=== PATIENT | female | born 1930 | race Caucasian/White ===

== ENCOUNTER 2017-02-16 04:15 | Inpatient (IN) | payer OTHER, MEDICARE ==
[~2017-02-16] VITALS: Ht 160 cm; Wt 52.7 kg
[~2017-02-16 04:15] MED LIST: ASPIRIN EC81 M1 PO; LOSARTAN POTAS100 M1 PO; METOPROLOL TART25 M1 PO; NISOLDIPINE PO; PRAVASTATIN SOD40 M2 PO
[2017-02-16] MEDS ORDERED: GLUCOSAMINE-CH1 EACH PO (13:04)
[2017-02-16] MEDS ORDERED: DAILY MULTIPLE1 EACH PO (13:05)
--- NOTE | 2017-02-16 14:50 | Admission Core Measures ---
Admission Meds I reviewed the following Meds: Current Medications Sig/Roly Start time Last Medication Dose Stop Time Status Admin Acetaminophen 975 MG ONCE 02/16 NR (Tylenol) 02/16 2359 Cefazolin Sodium 2,000 MG ONCE 02/16 NR (Kefzol-Ancef Inj) 02/16 2359 Losartan Potassium 100 MG DAILY 02/17 1000 UNVr (Cozaar) Metoprolol Tartrate 25 MG BID 02/16 2200 UNVr (Lopressor) Oxycodone HCl 10 MG ONCE 02/16 0000 NR (Roxicodone) 02/16 2359 Pravastatin Sodium 40 MG DAILY 02/17 1000 UNVr (Pravachol) Acute Coronary Syndrome Inclusion Criteria ACS Diagnosis No Inpatient Core Measures LDL Reminder: If No, please order W/I first 24hr of stay Congestive Heart Failure Inclusion Criteria CHF Diagnosis No Cerebrovascular accident Inclusion Criteria CVA/TIA Diagnosis No Inpatient Core Measures Bedside Swallow Eval Reminder: If BSE failed, place ST order Antithrombotic Reminder: Order Antithrombotic Medication by end of day 2 Antithrombotic Reminder: Document Reason Antithrombotic Not ordered by end of day 2 AFIB/Flutter Reminder: If Present, add to problem list AFIB/Flutter Reminder: Order Anticoag Medication for pts with AFIB/Flutter Atherosclerosis Reminder: If Present, add to problem list LDL Reminder: If No, please order W/I first 24hr of stay PT Order Reminder: If No, please order Venous thromboembolism Inpatient Core Measures VTE Risk Factors: Age > 40, Surgery No [facility] VTE prophylaxis d/t No contraindications No VTE Pharm Prophylaxis d/t No contraindications Inclusion Criteria - Per Current guidelines, there needs to be overlap - treatment for the first 5 days of Warfarin therapy. - Parenteral Anticoagulation (IV or SC) needs to be - given along with Warfarin therapy. VTE Diagnosis No VTE Type NONE VTE Confirmed by (Test) NONE Problem List As ranked by this Provider includes Assessment & Plan 1. Status post total hip replacement, right HOME MEDS Home Med List Aspirin (Ecotrin*) 81 MG TABLET. 1 TAB PO DAILY PROPHO (Reported) Glucosam HCl/Chondro Rothman A/C/Mn (Glucosamine-Chondroitin Cap) 1 EACH CAPSULE 1 TAB PO DAILY SUPP (Reported) Losartan Potassium 100 MG TABLET 1 TAB PO DAILY HYPONATREMIA (Reported) Metoprolol Tartrate 25 MG TABLET 1 TAB PO BID HTN (Reported) Multivitamin (Daily Multiple Vitamin) 1 EACH TABLET 1 TAB PO DAILY SUPP ( Reported) Nisoldipine 8.5 MG TAB.ER.24H 1 TAB PO DAILY BP (Reported) Pravastatin Sodium 40 MG TABLET 1 TAB PO DAILY CHOLESTEROL (Reported)
--- NOTE | 2017-02-16 14:52 | Discharge Summary ---
Visit Information Visit Dates Admission Date: 02/16/17 Discharge Date: 02/18/17 Hospital Course Course Attending Physician: BC YUEN MD Primary Care Physician: GENESIS MEREDITH,[facility] Course: Patient admitted to floor following procedure below. Patient ambulated with PT upon arrival to the floor. Patient continued to progress well. Upon discharge patient is afebrile, tolerating diet, pain controlled, ambulating well with rolling walker and PT. Complications: None Allergies: Coded Allergies: No Known Allergies (02/13/17) Significant Procedures: 02/16/17 right total hip arthroplasty Disposition Summary Disposition Principal Diagnosis: Right hip pain Additional Diagnosis: None Discharge Disposition: home health services Discharge Instructions General Discharge Information Code Status: Full Code Patient's Diet: Resume normal diet Patient's Activity: Weightbearing as tolerated Daily physical therapy Follow-Up Instructions/Appts: Call office to schedule appointment Medications at Discharge Discharge Medications: Stop taking the following medications: Aspirin (Ecotrin*) 81 MG TABLET.DR ORAL DAILY Continue taking these medications: Nisoldipine (Nisoldipine) 8.5 MG TAB.ER.24H 1 Tablet ORAL DAILY Comments: NOT GIVEN Pravastatin Sodium (Pravastatin Sodium) 40 MG TABLET 1 Tablet ORAL DAILY Comments: Last Taken: 02/17/17 Time: 2200PM Metoprolol Tartrate (Metoprolol Tartrate) 25 MG TABLET 1 Tablet ORAL TWICE DAILY Comments: Last Taken: 02/18/17 Time: 0800AM Losartan Potassium (Losartan Potassium) 100 MG TABLET 1 Tablet ORAL DAILY Comments: Last Taken: 02/18/17 Time: 0800AM Glucosam HCl/Chondro Rothman A/C/Mn (Glucosamine-Chondroitin Cap) 1 EACH CAPSULE 1 Tablet ORAL DAILY Comments: NOT GIVEN Multivitamin (Daily Multiple Vitamin) 1 EACH TABLET 1 Tablet ORAL DAILY Comments: NOT GIVEN Start taking the following new medications: Aspirin (Aspirin*) 325 MG TABLET 1 Tablet ORAL TWICE DAILY Qty = 60 No Refills Comments: Last Taken: 02/18/17 Time: 0800AM Hydromorphone HCl (Dilaudid) 2 MG TABLET 1-2 Tablet ORAL Q4-6P as needed for PAIN Qty = 36 No Refills Comments: Last Taken:02/17/17 Time: 1430PM Docusate Sodium (Colace) 100 MG CAPSULE 1 Capsule ORAL TWICE DAILY as needed for CONSTIPATION Qty = 30 No Refills Comments: Last Taken: 02/18/17 Time: 0800AM Polyethylene Glycol 3350 (Miralax) 17 GRAM POWD.PACK 1 Packet ORAL DAILY as needed for CONSTIPATION Qty = 14 No Refills Instructions: dissolve in water Comments: NOT GIVEN Copies To: ZOE HURTADO MD
[2017-02-16] MEDS ORDERED: ASPIRIN325 M2 PO (14:54)
[2017-02-16] MEDS ORDERED: MIRALAX17 G1 PO (14:54)
[2017-02-16] MEDS ORDERED: COLACE100 M1 PO (14:54)
[2017-02-16] MEDS ORDERED: DILAUDID2 M1 PO (14:54)
--- NOTE | 2017-02-16 14:55 | Patient Discharge Instructions ---
Discharge Instructions General Discharge Information You were seen/treated for: Right hip pain You had these procedures: 02/16/17 right total hip arthroplasty Watch for these problems: Redness, swelling, fever, signs of infection. Uncontrolled pain, Excessive bleeding. Decreased range of motion or unable to bear weight. Chest pain, shortness of breath. Do not soak the wound: Yes No bath, but you may shower: Yes Other wound care: Daily dressing changes were as needed Diet Continue normal diet: Yes Activity Activity Self Limited: Yes Activity Limited to: Weight bear as tolerated Additional ACTIVITY Info: Daily PT Acute Coronary Syndrome Inclusion Criteria At DC or during hospital stay patient has or had the following: ACS DIAGNOSIS No Discharge Core Measures Meds if any: Prescribed or Continued at Discharge Meds if any: NOT Prescribed or Continued at Discharge Congestive Heart Failure Inclusion Criteria At DC or during hospital stay patient has or had the following: CHF DIAGNOSIS No Discharge Core Measures Meds if any: Prescribed or Continued at Discharge Meds if any: NOT Prescribed or Continued at Discharge Cerebrovascular accident Inclusion Criteria At DC or during hospital stay patient has or had the following: CVA/TIA Diagnosis No Discharge Core Measures Meds if any: Prescribed or Continued at Discharge Meds if any: NOT Prescribed or Continued at Discharge Venous thromboembolism Inclusion Criteria VTE Diagnosis No VTE Type NONE VTE Confirmed by (Test) NONE Discharge Core Measures - Per Current guidelines, there needs to be overlap - treatment for the first 5 days of Warfarin therapy. - If discharged on Warfarin prior to 5 days of - overlap therapy, the patient will need to be - assessed for post discharge needs including - *Post discharge parental anticoagulation - *Warfarin and/or parental anticoagulation education - *Follow up date to check INR post discharge At least 5 days overlap therapy as Inpatient No Meds if any: Prescribed or Continued at Discharge Note: Overlap Therapy is Warfarin and Anticoagulant Meds if any: NOT Prescribed or Continued at Discharge
--- NOTE | 2017-02-16 17:16 | Operative Report ---
Operative/Inv Procedure Report Surgery Date: 02/16/17 Name of Procedure: Right total hip replacement Pre-Operative Diagnosis: Primary right hip DJD Post-Operative Diagnosis: Same Estimated Blood Loss: 250 Surgeon/Out Of School Hours Care Worker: WILFRID MEREDITH,BC [place] Anesthesia: block Operative/Procedure Note Note: Description of Procedure: The patient was taken to the operating room and positively identified. After induction of spinal anesthesia and administration of appropriate pre-operative antibiotics, the patient was positioned supine on the operating room table and all bony prominences were well padded. After performing a surgical timeout, the right lower extremity was prepped and draped in the usual sterile fashion. A direct anterior approach was made to the right hip. The incision was carried sharply through superficial soft tissues to the level of the fascia. Meticulous hemostasis was maintained with Bovie electocautery. The fascia over the tensor fascia shavon muscle was opened sharply and the interval between the TFL and the sartorius was entered bluntly taking care to stay lateral to the lateral femoral cutaneous nerve. Retractors were placed around the femoral neck and the pericapsular fat was identified. The ascending branches of the lateral femoral circumflex vessels were identified and carefully coagulated. The pericapsular fat and anterior capsule were then resected. A napkin ring osteotomy was performed and the femoral head was removed without difficulty. Attention was then turned to the acetabulum. After appropriate placement of retractors, the acetabulum was exposed. Soft tissue was cleaned from the acetabular margin and notch. Overhanging osteophytes were removed and the teardrop was exposed. The acetabulum was then sequentially reamed to accept a 58 mm Feng Trident Tritanium hemispherical shell. This was impacted into place in the appropriate position and several screws were used for supplemental fixation. It was then fitted with a 36 mm Trident X3 zero degree polyethylene insert. Attention was then turned to the femur. After performing the appropriate ligament releases, the proximal femur was exposed. It was then sequentially broached to accept a size 5 Feng accolade 2 stem. This was trialed for leg length and stability. The trial component was removed and the final component was impacted into place. The trunnion was carefully cleaned and fit with a 36 mm, +0 Biolox delta ceramic femoral head. The hip was reduced and put through a full range of motion and found to be stable. The articular space was then irrigated with sterile saline. The periarticular soft tissues were infilitrated with Marcaine. The fascial layer was closed with interrupted #1 vicryl suture and the skin was re-approximated with interrupted 2 -0 vicryl. The skin was closed with a running 3-0 V-Lock suture. Steri-strips and a sterile dressing were applied. The patient was awakened and taken to the recovery room in satisfactory condition.
--- NOTE | 2017-02-16 18:12 | RADIOLOGY REPORT ---
EXAMINATION: XR HIP, RIGHT CLINICAL INFORMATION: Follow-up status post right hip replacement. COMPARISON: None TECHNIQUE: AP and crosstable lateral of the right hip. FINDINGS: A right hip prosthesis is intact. There is no evidence for hardware failure or migration. There is expected subcutaneous gas following hardware placement. There is soft tissue swelling. IMPRESSION: Expected appearance of right hip following right hip prosthesis placement.
[2017-02-16 19:27] VITALS: BP 132/60
--- NOTE | 2017-02-16 20:41 | NUR ---
PT UP TO FLOOR AT 1900. PT A/O X3, PT ON RA. VSS. PT DENIES PAIN. DRSG TO R HIP C/D/I,. NO DRAINAGE NOTED. SKIN OTHERWISE INTACT. ALSPS ON TO BLE. DURACOLD TO R HIP. IVF INFUSING VIA #20 LK PER EMAR. + CMS. CALL [facility] USE INSTRUCTED . WILL MONITOR
[2017-02-16 21:00] VITALS: BP 151/71
[2017-02-17 00:59] VITALS: BP 140/64
[2017-02-17 03:27] VITALS: BP 150/62
[2017-02-17 07:10] VITALS: BP 146/52
[2017-02-17 08:15] LABS: ABSOLUTE BASOPHIL COUNT 0 /CUMM (0.0-0.2); ABSOLUTE EOSINOPHIL COUNT 0 /CUMM (0.0-0.7); ABSOLUTE LYMPH COUNT 1.2 /CUMM (1.2-3.4); ABSOLUTE MONOCYTE COUNT 1.4 /CUMM (0.10-0.60); BASOPHIL % 0.1 % (0.0-2.0); EOSINOPHIL % 0 % (0-5); HEMATOCRIT 28.3 % (37-47); MEAN CORPUSCULAR HGB 31.2 PG (27.0-31.0); MEAN CORPUSCULAR HGB CONC 33.6 G/DL (33.0-37.0); MEAN CORPUSCULAR VOLUME 92.7 FL (81.0-99.0); MEAN PLATELET VOLUME 9.4 FL (7.4-10.4); PLATELET COUNT 210 /CUMM (130-400); RED BLOOD CELL CT 3.05 /CUMM (4.20-5.40); WHITE BLOOD CELL COUNT 11.6 /CUMM (4.8-10.8)
--- NOTE | 2017-02-17 08:18 | PN- Orthopedic ---
Subjective Subjective: NAEO. Patient without new c/o. Pain controlled overnight without numbness/ tingling in RLE. Tolerating PO without n/v. +flatus, no BM. Voided. Has not worked with PT yet. Denies CP/SOB. Objective Vital Signs and I&Os Vital Signs Date Time Temp Pulse Resp B/P Pulse O2 O2 Flow FiO2 Ox Delivery Rate 02/17 0710 97.6 54 18 146/52 93 Room Air 02/17 0327 97.6 52 18 150/62 96 Room Air 02/17 0112 50 02/17 0059 97.5 49 18 140/64 95 Room Air 02/16 2134 71 136/60 02/16 2100 98.6 56 17 151/71 96 Room Air 02/16 1927 96.8 71 16 132/60 97 Room Air Intake & Output 02/17 1600 02/17 0800 02/17 0000 02/16 1600 02/16 0800 02/16 0000 Intake Total 720 975 Output Total 100 850 Balance 620 125 Intake, IV 600 225 Intake, Oral 120 750 Number 0 Bowel Movements Output, Urine 100 850 Patient 116 lb Weight Physical Exam: General: NAD, comfortable, A&Ox3 Chest: CTAB. RRR. Abdomen: soft, nontender, nondistended. Ext: Right hip dressing clean dry and intact. Right thigh compartments soft. No calve swelling/TTP, neurovascularly intact bilateral lower extremities Current Medications: Current Medications Sig/Roly Start time Last Medication Dose Route Stop Time Status Admin Acetaminophen 650 MG Q4P PRN 02/16 1915 AC PO Acetaminophen 975 MG ONCE 02/16 0000 DC PO 02/16 235 Amlodipine Besylate 2.5 MG DAILY 02/17 1000 AC PO Aspirin 325 MG BID 02/16 2200 AC 02/16 PO 2134 Cefazolin Sodium 2 GM Q8H 02/17 0000 AC 02/17 N/A 1 UNIT IV 02/17 0829 0023 Cefazolin Sodium 2 GM IQ8 02/16 1600 DC N/A 1 UNIT IV 02/17 0029 Cefazolin Sodium 2,000 MG ONCE 02/16 0000 DC IV 02/16 235 Dextrose/Sodium 1,000 ML .[id number] 02/16 1915 DC 02/17 Chloride IV 0512 Docusate Sodium 100 MG DAILY 02/17 1000 AC PO Fentanyl Citrate 100 MCG .STK-MED ONE 02/16 1115 DC IM 02/16 1116 Hydromorphone HCl 2 MG Q4P PRN 02/16 1915 AC PO Hydromorphone HCl 4 MG Q4P PRN 02/16 191 AC PO Losartan Potassium 100 MG DAILY 02/17 1000 AC PO Meperidine HCl 50 MG .STK-MED ONE 02/16 1712 DC IM 02/16 1713 Metoprolol Tartrate 25 MG BID 02/16 2200 AC 02/16 PO 2134 Midazolam HCl 2 MG .STK-MED ONE 02/16 1115 DC IM 02/16 1116 Morphine Sulfate 2 MG Q3P PRN 02/16 1915 AC IV Ondansetron HCl 4 MG Q6P PRN 02/16 1915 AC IV Oxycodone HCl 10 MG .STK-MED ONE 02/16 1355 DC PO 02/16 1356 Oxycodone HCl 10 MG ONCE 02/16 0000 DC PO 02/16 2359 Polyethylene Glycol 17 GM DAILY 02/17 1000 AC PO Pravastatin Sodium 40 MG 1700 02/16 1700 AC 02/16 PO 2134 Tranexamic Acid 2,000 MG .STK-MED ONE 02/16 1115 DC IV 02/16 1116 Results Last 48 Hours of Labs: Laboratory Tests 02/17 0620 Chemistry Sodium Pending Potassium Pending Chloride Pending Carbon Dioxide Pending Anion Gap Pending BUN Pending Creatinine Pending BUN/Creatinine Ratio Pending Hematology CBC w Diff Pending WBC Pending RBC Pending Hgb Pending Hct Pending MCV Pending MCH Pending RDW Pending Plt Count Pending MPV Pending PUBS MCHC Pending Assessment/Plan Assessment/Plan 86yo female postop day #1 status post right total hip arthroplasty. AVSS, patient stable. - Pain control - Bowel regimen - Aspirin 325 mg by mouth twice a day - DC IV fluids - Antibiotics complete - I/O's - Continue diet - Out of bed and ambulate with PT, weightbearing as tolerated - Alps and teds - DC planning - Will discuss with attending Core Measures/Miscellaneous Venous Thromboembolism VTE Risk Factors: Age > 40, Surgery VTE Contraindications: No Contraindications VTE Diagnosis: No VTE Type: NONE VTE Confirmed by (Test): NONE Beta Pravin Is Beta Pravin a Home Med? Yes If Yes, Was This Ordered Today? Yes Antibiotics Is Patient on Antibiotics? No
[2017-02-17 14:31] VITALS: BP 148/62
[2017-02-17 22:09] VITALS: BP 154/66
[2017-02-18 00:12] VITALS: BP 160/68
[2017-02-18 01:45] VITALS: BP 152/60
--- NOTE | 2017-02-18 06:49 | PN- Orthopedic ---
Subjective Subjective: POD#2 S/P RIGHT MISSY COMFORTABLE NO MAJOR COMPLAINTS DENIES CP, SOB, NO N+V WITH DIET Objective Vital Signs and I&Os Vital Signs Date Time Temp Pulse Resp B/P Pulse O2 O2 Flow FiO2 Ox Delivery Rate 02/18 0145 152/60 02/18 0012 97.8 58 18 160/68 94 02/17 2209 98.4 58 19 154/66 96 02/17 2054 64 150/68 02/17 1431 97.6 59 20 148/62 98 02/17 0844 62 142/68 02/17 0844 76 142/68 02/17 0710 97.6 54 18 146/52 93 Room Air Intake & Output 02/18 0800 02/18 0000 02/17 1600 02/17 0800 02/17 0000 02/16 1600 Intake Total 900 1050 720 975 Output Total 400 850 100 850 Balance 500 200 620 125 Intake, IV 150 600 225 Intake, Oral 900 900 120 750 Number 0 0 0 Bowel Movements Output, Urine 400 850 100 850 Patient 116 lb Weight Physical Exam: CV: RRR LUNGS: CLEAR ABD: SOFT, +BS EXT: DRSG CHANGED, WOUND C/D/I DISTAL CMS INTACT NO CALF TENDERNESS BILAT Assessment/Plan Assessment/Plan ORTHO STABLE PLAN CONT OOB WITH PT/STAIRS HOME D/C PLAN LATER TODAY CONT ALL OTHERS Core Measures/Miscellaneous Venous Thromboembolism VTE Risk Factors: Age > 40, Surgery VTE Contraindications: No Contraindications VTE Diagnosis: No VTE Type: NONE VTE Confirmed by (Test): NONE Beta Pravin Is Beta Pravin a Home Med? Yes If Yes, Was This Ordered Today? Yes Antibiotics Is Patient on Antibiotics? No
[2017-02-18 06:50] VITALS: BP 170/80
[2017-02-18 14:29] VITALS: BP 144/80
== END 2017-02-18 16:20 | disposition home health service (06) | DRG 470 ==
LOC: ENRESERVDT → ENRESERVTM → SDA 04:15 → ENPENDDIS 04:15 → 2NB 04:15 → SDA 07:00 → 2NB 18:51
PROVIDERS: Physician Assistant Surgical; ADMIT Orthopaedic Surgery
PROC: 0SR903A Replacement of Right Hip Joint with Ceramic Synthetic Substitute, Uncemented, Open Approach (ICD-10-PCS; principal; 2017-02-16)
DX: M16.11 Unilateral primary osteoarthritis, right hip (principal); I73.9 Peripheral vascular disease, unspecified; I10 Essential (primary) hypertension; E78.5 Hyperlipidemia, unspecified; K21.9 Gastro-esophageal reflux disease without esophagitis; Z87.891 Personal history of nicotine dependence
CPT/HCPCS: 2NBSP; 36415; 73502-RT; 82436; 88304; 97110-GO; 97116-GO; 97161-GP; 97530-GO; J0690; J0735; J1170; J2405; J3490; J7042

== ENCOUNTER 2018-03-18 20:33 | Inpatient (IN) | payer OTHER, MEDICARE ==
[~2018-03-18] VITALS: Ht 152.4 cm; Wt 53.5 kg
[~2018-03-18 20:33] MED LIST changes: +ASPIRIN325 M2 PO; +COLACE100 M1 PO; +DAILY MULTIPLE1 EACH PO; +DILAUDID2 M1 PO; +GLUCOSAMINE-CH1 EACH PO; +MIRALAX17 G1 PO
--- NOTE | 2018-03-18 21:08 | ED MVC/FALL/TRAUMA COMPLAINT ---
History of Present Illness General Chief Complaint: Fall Stated Complaint: BIBA FALL L HIP PAIN Source: patient, family, old records, EMS Exam Limitations: no limitations Vital Signs & Intake/Output Vital Signs & Intake/Output Vital Signs Date Time Temp Pulse Resp B/P B/P Pulse O2 O2 Flow FiO2 Mean Ox Delivery Rate 03/19 0112 98.4 67 16 159/69 96 Room Air 03/18 2302 98.5 64 18 112/70 97 Room Air Room Air 03/18 2044 98.4 68 18 135/71 98 ED Intake and Output 03/19 0000 03/18 1200 Intake Total 100 Output Total Balance 100 Intake, IV 100 Allergies Coded Allergies: No Known Allergies (02/13/17) Reconcile Medications Amlodipine Besylate 5 MG TABLET 1 TAB PO DAILY BP (Reported) Aspirin (Ecotrin*) 81 MG TABLET.DR 1 TAB PO DAILY HEART/BLOOD (Reported) Calcium (Elemental-Fr Calcarb) (Calcium) 600 MG CALCIUM (1,500 MG) TABLET 1 TAB PO DAILY SUPPLEMENT (Reported) Glucosam HCl/Chondro Rothman A/C/Mn (Glucosamine-Chondroitin Cap) 1 EACH CAPSULE 1 TAB PO DAILY SUPP (Reported) Losartan Potassium 100 MG TABLET 1 TAB PO DAILY BP (Reported) Multivitamin (Daily Multiple Vitamin) 1 EACH TABLET 1 TAB PO DAILY SUPP ( Reported) Pravastatin Sodium 40 MG TABLET 1 TAB PO DAILY CHOLESTEROL (Reported) Triage Note: BIBA FROM HOME S/P MECHANICAL FALL ON FLOOR AT HOME. PATIENT ARRIVES TO ED WITH EMS PRESENTING WITH LEFT LEG ROTATION AND SHORTENING, +CMS PRESENT. PATIENT WAS GIVEN 50MCG FENTANYL BY EMS PRIOR TO ARRIVAL. PREHOSPITAL IV ESTABLISHED #20 LEFT HAND. PATIENT IS ALERT, ORIENTED, SPEECH CLEAR, ON ROOM AIR. PATIENT REPORTS 8/10 LEFT THIGH/HIP PAIN. PROVIDER AT BEDSIDE FOR EVAL Triage Nurses Notes Reviewed? yes Onset: Abrupt Duration: day(s): (1), constant, continues in ED, getting worse Timing: single episode today Severity: mild, moderate Severity Numbers: 9 Injuries/Fall Location: pelvis, lower extremity Method of Injury: fall Loss of Consciousness: no loss of consciousness No Modifying Factors: none LMP (ages 10-50): post menopausal : No Patient currently breastfeeds: No HPI: 87-year-old female past medical history of hypertension, hyperlipidemia, osteoarthritis presents for evaluation after a fall. Patient states that she slipped on her kitchen floor after mopping it she landed on her left hip. There is no head strike or loss of consciousness. She is complaining of pain in the left hip and also the right hip. The right hip was replaced about one year ago. The fall was mechanical there was no chest pain shortness of breath and lightheadedness dizziness before the fall. No blood thinners. She was unable to get up due to pain. No numbness or tingling ankle pain or knee pain. (John Barbosa) Past History Medical History Any Pertinent Medical History? 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 No (John Barbosa) Review of Systems Review of Systems Constitutional: Reports: no symptoms. Eyes: Reports: no symptoms. Ears, Nose, Throat, Mouth: Reports: no symptoms. Respiratory: Reports: no symptoms. Cardiovascular: Reports: no symptoms. Gastrointestinal/Abdominal: Reports: no symptoms. Genitourinary: Reports: no symptoms. Musculoskeletal: Reports: see HPI, joint pain, joint swelling, muscle pain, muscle stiffness. Skin: Reports: no symptoms. Neurological/Psychological: Reports: no symptoms. All Other Systems: Reviewed and Negative (John Barbosa) Physical Exam Physical Exam General Appearance: well developed/nourished, no apparent distress, alert, awake Head: atraumatic, normal appearance, no scalpc abrasions or hematomas no camacho signs or raccoon eyes Eyes: Bilateral: normal appearance, PERRL, EOMI, normal inspection. Ears, Nose, Throat, Mouth: hearing grossly normal, moist mucous membrane Neck: normal inspection, supple, full range of motion, no midline tenderness Respiratory: normal breath sounds, chest non-tender, no respiratory distress, lungs clear Cardiovascular: regular rate/rhythm, normal peripheral pulses Peripheral Pulses: 2+ radial (R), 2+ radial (L), 2+ tibialis posterior (R), 2+ tibialis posterior ( L), 2+ dorsalis pedis (R), 2+ dorsalis pedis (L) Gastrointestinal: soft, non-tender Back: normal inspection, normal range of motion, no vertebral tenderness, no bruising or abrasions Extremities: the left foot is externally rotated and shortened she has severe pain to the lateral aspect of the left hip. Range of motion of left hip is reduced due to pain. There is also tenderness to the right hip to palpation. Range of motion of the right hip is reduced due to pain. Neurovascular supply is intact to the bilateral lower extremities. No other joint swelling or pain. No signs of trauma to the chest neck back or abdomen Neurologic/Psych: no motor/sensory deficits, awake, alert, oriented x 3 Skin: intact, normal color, warm/dry Core Measures ACS in differential dx? No CVA/TIA Diagnosis No Sepsis Present: No Sepsis Focused Exam Completed? No (Eliazar BURNS,John) Progress Differential Diagnosis: C/T/L spine injury, ext injury, ICH, pelvis injury, pnemothorax, spinal cord injury Plan of Care: Orders Procedure Date/time Status Nothing by Mouth 03/19 B Active Weight 03/19 215 Active Vital Signs 03/19 215 Active Teach/Educate 03/19 215 Active Pain Treatment and Response 03/19 215 Active Nutritional Intake, Monitor 03/19 215 Active Isolation 03/19 215 Active Intake & Output 03/19 215 Active Patient Care Conference 03/195 Active Activity/Ambulation 03/195 Active Admit to inpatient 03/19 0126 Active INCENTIVE SPIROMETRY TRX (GEN) 03/18 234 Active Pathway - chart 03/18 234 Active Patient Data 03/18 234 Active Vital Signs 03/18 234 Active Procedure Prep 03/18 2344 Active Activity/Ambulation 03/18 2344 Active Code Status 03/18 2344 Active [place], Insertion/Removal/Asses 03/18 2215 Active CULTURE,URINE 03/18 2215 Active Intake & Output 03/18 2108 Active URINALYSIS 03/18 2045 Complete TROPONIN LEVEL 03/18 2045 Complete PARTIAL THROMBOPLASTIN TIME 03/18 2045 Complete PROTHROMBIN TIME 03/18 2045 Complete COMPREHENSIVE METABOLIC PANEL 03/18 2045 Complete CBC WITHOUT DIFFERENTIAL 03/18 2045 Complete EKG 03/18 2045 Active TYPE & SCREEN (NOT X-MATCH) 03/18 2045 Complete Current Medications Sig/Roly Start time Last Medication Dose Stop Time Status Admin Pravastatin Sodium 40 MG 1700 03/19 1700 AC (Pravachol) Amlodipine Besylate 5 MG DAILY 03/19 0900 AC (Norvasc) Losartan Potassium 100 MG DAILY 03/19 0900 AC (Cozaar) Morphine Sulfate 2 MG Q4P PRN 03/19 0245 AC 03/19 (MORPHINE SULFATE) 0252 Dextrose/Sodium 1,000 ML 100 MLS/HR 03/18 2345 AC 03/19 Chloride 0257 (D5W-1/2 Normal Saline 1000ML) Laboratory Tests 03/18/182247: Urine Color YEL, Urine Clarity CLEAR, Urine pH 6.0, Ur Specific [place] 1.025, Urine Protein 100 H, Urine Ketones NEG, Urine Nitrite NEG, Urine Bilirubin NEG, Urine Urobilinogen 0.2, Ur Leukocyte Esterase NEG, Ur Microscopic SEDIMENT EXAMINED, Urine RBC RARE, Urine WBC RARE, Ur Epithelial Cells FEW, Urine Bacteria MOD H, Hyaline Casts RARE H, Urine Mucus RARE, Urine Hemoglobin TRACE -INTACT, Urine Glucose NEG 03/18/182104: Anion Gap 16, Estimated GFR 53 L, BUN/Creatinine Ratio 32.0 H, Glucose 124 H, Calcium 9.7, Total Bilirubin 0.5, AST 40 H, ALT 27, Alkaline Phosphatase 119, Troponin I < 0.01, Total Protein 7.5, Albumin 4.5, Globulin 3.0, Albumin/ Globulin Ratio 1.5, PT 10.7, INR 0.98, APTT 27, CBC w Diff NO MAN DIFF REQ, RBC 3.90 L, MCV 93.6, MCH 31.5 H, MCHC 33.6, RDW 13.2, MPV 9.6, Gran % 83.5 H, Lymphocytes % 9.2 L, Monocytes % 7.0, Eosinophils % 0.3, Basophils % 0, Absolute Granulocytes 10.3 H, Absolute Lymphocytes 1.1 L, Absolute Monocytes 0.9 H, Absolute Eosinophils 0, Absolute Basophils 0 Microbiology 03/18 2248 URINE ROUT: Urine Culture - RECD Patient seen and evaluated. She is here after a mechanical fall. There is no head strike or loss of consciousness. She has pain and swelling to the left hip the left lower extremity is shortened and externally rotated suspect a fracture. X-rays ordered of the bilateral hips and chest. We'll also check basic preop labs EKG chest x-ray. There is no signs of trauma to the head she is not on blood thinners. IV Tylenol and morphine ordered for pain. Patient has a left-sided intertrochanteric hip fracture. Neurovascular supply is intact to the left hip. There is also a possible chronic fracture/ postsurgical change to the right hip. The hardware to the right hip appears intact. Basic blood work does not show any acute findings EKG is stable. Spoke with Dr Garcia who is on-call for Dr Newman who repaired the patient's right hip. The patient will be admitted to service. Diagnostic Imaging: Viewed by Me: Radiology Read. Discussed w/RAD: Radiology Read. Radiology Impression: PATIENT: TASH WOOTEN V PRESENT AGE: 87 PATIENT ACCOUNT NO: [id number] : 31 LOCATION: [facility] ORDERING PHYSICIAN: John BURNS SERVICE DATE: 03/18/18 EXAM TYPE: RAD - XRY-HIP 2-3 VIEWS, RIGHT EXAMINATION: XR HIP, RIGHT CLINICAL INFORMATION: Fall. Fracture. COMPARISON: Right hip 02/16/2017 TECHNIQUE: Two views of the right hip. FINDINGS: Status post right hip replacement. Orthopedic hardware intact. No dislocation of the hip joint. There is a displaced fracture through the base of the greater tuberosity. This is new since exam of 02/16/2017. The fracture margin however appears sclerotic suggesting that this is an old fracture. IMPRESSION: 1. Status post right hip replacement. 2. Fracture through the greater tuberosity of the femur. This is new since exam of 02/16/2017 but sclerotic margin of the fracture fragments suggesting this is an old fracture. Clinically correlate. DICTATED BY: Juno Ramírez MD DATE/TIME DICTATED:03/18/182149 GRAIN ELEVATOR SUPERINTENDENT:LIS DATE/TIME TRANSCRIBED:03/18/182149 CONFIDENTIAL, DO NOT COPY WITHOUT APPROPRIATE AUTHORIZATION. <Electronically signed in Other Vendor System> SIGNED BY: Juno Ramírez MD 03/18/182155, PATIENT: TASH WOOTEN V PRESENT AGE: 87 PATIENT ACCOUNT NO: [id number] : 31 LOCATION: [facility] ORDERING PHYSICIAN: John BURNS SERVICE DATE: 03/18/18 EXAM TYPE: RAD - XRY-HIP 2-3 VIEWS, LEFT EXAMINATION: XR HIP, LEFT CLINICAL INFORMATION: Fall. Left hip pain. COMPARISON: None TECHNIQUE: Two views of the left hip. FINDINGS: There is a displaced intratrochanteric fracture of the left hip. The femoral head remains seated in acetabulum. There is joint narrowing of the left hip with subchondral sclerosis and bone spurs of the femoral head and acetabulum. Patient has a right hip replacement partially imaged. IMPRESSION: Intratrochanteric fracture of the left hip. DICTATED BY: Juno Ramírez MD DATE/TIME DICTATED:03/18/182148 GRAIN ELEVATOR SUPERINTENDENT:LIS DATE/TIME TRANSCRIBED:03/18/182148 CONFIDENTIAL, DO NOT COPY WITHOUT APPROPRIATE AUTHORIZATION. CXR Impression: PATIENT: TASH WOOTEN V PRESENT AGE: 87 PATIENT ACCOUNT NO: [id number] : 31 LOCATION: [facility] ORDERING PHYSICIAN: John BURNS SERVICE DATE: 03/18/18 EXAM TYPE: RAD - XRY-CHEST XRAY, SINGLE VIEW EXAMINATION:\H\ \N\XR CHEST CLINICAL INFORMATION: Mechanical fall. COMPARISON: None. TECHNIQUE: Frontal view of the chest was obtained. FINDINGS: The heart is enlarged. There is calcific atherosclerotic disease of the aorta. No focal consolidation to indicate pneumonia. No pleural effusion or pneumothorax. Curvature of the thoracic spine, concave towards the left. Degenerative changes of the thoracic spine. No displaced rib fracture. IMPRESSION: No pneumonia. No pneumothorax or pleural effusion. DICTATED BY: Vinicio Vogt MD DATE/TIME DICTATED:03/18/182150 GRAIN ELEVATOR SUPERINTENDENT:LIS DATE/TIME TRANSCRIBED:03/18/182150 CONFIDENTIAL, DO NOT COPY WITHOUT APPROPRIATE AUTHORIZATION. <Electronically signed in Other Vendor System> SIGNED BY: Vinicio Vogt MD 03/18/182156 Initial ED EKG: normal sinus rhythm, no ST T wave changes (John Barbosa) Departure Departure Disposition: STILL A PATIENT Condition: Stable Clinical Impression Primary Impression: Closed intertrochanteric fracture of left hip Qualifiers: Encounter type: initial encounter Fracture alignment: nondisplaced Qualified Code: S72.145A - Nondisplaced intertrochanteric fracture of left femur , initial encounter for closed fracture Referrals: Amadeo MEREDITH,Nam (PCP/Family) Departure Forms: Customer Survey General Discharge Information Admission Note Spoke With: Mukund Newman MD Documentation of Exam: Documentation of any treatments & extenuating circumstances including Concerns Regarding Discharge (functional status, medication knowledge or non-compliance, living conditions, etc.) that warrant an admission rather than observation: [IV pain medication, IV fluids, nothing by mouth, orthopedic consult, surgical repair of left hip fracture, physical therapy, serial imaging, serial labs] (John Barbosa) PA/ACCOUNTING RECRUITER Co-Sign Statement Statement: ED Attending supervision documentation- [x] I saw and evaluated the patient. I have also reviewed all the pertinent lab results and diagnostic results. I agree with the findings and the plan of care as documented in the PA's/ACCOUNTING RECRUITER's documentation. 03/18/18, 22:20... pt with left intertrochanteric hip fracture, presently comfortable in the ED to be admitted for surgical repair. [] I have reviewed the ED Record and agree with the PA's/ACCOUNTING RECRUITER's documentation. [] Additions or exceptions (if any) to the PAs/ACCOUNTING RECRUITER's note and plan are summarized below: [] (Zahraa MEREDITH,Umair Haque)
[2018-03-18 21:38] LABS: ABSOLUTE BASOPHIL COUNT 0 /CUMM (0.0-0.2); ABSOLUTE EOSINOPHIL COUNT 0 /CUMM (0.0-0.7); ABSOLUTE GRANULOCYTE CT 10.3 /CUMM (1.4-6.5); ABSOLUTE LYMPH COUNT 1.1 /CUMM (1.2-3.4); ABSOLUTE MONOCYTE COUNT 0.9 /CUMM (0.10-0.60); BASOPHIL % 0 % (0.0-2.0); EOSINOPHIL % 0.3 % (0-5); GRANULOCYTE % 83.5 % (42.2-75.2); HEMATOCRIT 36.5 % (37-47); MEAN CORPUSCULAR HGB 31.5 PG (27.0-31.0); MEAN CORPUSCULAR HGB CONC 33.6 G/DL (33.0-37.0); MEAN CORPUSCULAR VOLUME 93.6 FL (81.0-99.0); MEAN PLATELET VOLUME 9.6 FL (7.4-10.4); PLATELET COUNT 263 /CUMM (130-400); RBC DISTRIBUTION WIDTH 13.2 % (11.5-14.5); WHITE BLOOD CELL COUNT 12.4 /CUMM (4.8-10.8)
[2018-03-18] MEDS ORDERED: AMLODIPINE BESYL5 M1 PO (21:49)
[2018-03-18] MEDS ORDERED: ASPIRIN EC81 M1 PO (21:50)
[2018-03-18] MEDS ORDERED: CALCIUM600 M3 PO (21:51)
[2018-03-18 21:53] LABS: PT 10.7 SEC (9.4-12.5); PTT 27 SEC (25-37)
--- NOTE | 2018-03-18 21:53 | RADIOLOGY REPORT ---
EXAMINATION: XR HIP, LEFT CLINICAL INFORMATION: Fall. Left hip pain. COMPARISON: None TECHNIQUE: Two views of the left hip. FINDINGS: There is a displaced intratrochanteric fracture of the left hip. The femoral head remains seated in acetabulum. There is joint narrowing of the left hip with subchondral sclerosis and bone spurs of the femoral head and acetabulum. Patient has a right hip replacement partially imaged. IMPRESSION: Intratrochanteric fracture of the left hip.
--- NOTE | 2018-03-18 21:56 | RADIOLOGY REPORT ---
EXAMINATION: XR HIP, RIGHT CLINICAL INFORMATION: Fall. Fracture. COMPARISON: Right hip 02/16/2017 TECHNIQUE: Two views of the right hip. FINDINGS: Status post right hip replacement. Orthopedic hardware intact. No dislocation of the hip joint. There is a displaced fracture through the base of the greater tuberosity. This is new since exam of 02/16/2017. The fracture margin however appears sclerotic suggesting that this is an old fracture. IMPRESSION: 1. Status post right hip replacement. 2. Fracture through the greater tuberosity of the femur. This is new since exam of 02/16/2017 but sclerotic margin of the fracture fragments suggesting this is an old fracture. Clinically correlate.
--- NOTE | 2018-03-18 21:57 | RADIOLOGY REPORT ---
EXAMINATION:\H\ \N\XR CHEST CLINICAL INFORMATION: Mechanical fall. COMPARISON: None. TECHNIQUE: Frontal view of the chest was obtained. FINDINGS: The heart is enlarged. There is calcific atherosclerotic disease of the aorta. No focal consolidation to indicate pneumonia. No pleural effusion or pneumothorax. Curvature of the thoracic spine, concave towards the left. Degenerative changes of the thoracic spine. No displaced rib fracture. IMPRESSION: No pneumonia. No pneumothorax or pleural effusion.
--- NOTE | 2018-03-18 22:39 | History & Physical ---
General Information and HPI History of Present Illness: Ms. Claire is a 87-year-old female past medical history of hypertension, hyperlipidemia, osteoarthritis who presents to the ED with a mechanical fall. Allergies/Medications Allergies: Coded Allergies: No Known Allergies (02/13/17) Home Med list Amlodipine Besylate 5 MG TABLET 1 TAB PO DAILY BP (Reported) Aspirin (Ecotrin*) 81 MG TABLET.DR 1 TAB PO DAILY HEART/BLOOD (Reported) Calcium (Elemental-Fr Calcarb) (Calcium) 600 MG CALCIUM (1,500 MG) TABLET 1 TAB PO DAILY SUPPLEMENT (Reported) Glucosam HCl/Chondro Rothman A/C/Mn (Glucosamine-Chondroitin Cap) 1 EACH CAPSULE 1 TAB PO DAILY SUPP (Reported) Losartan Potassium 100 MG TABLET 1 TAB PO DAILY BP (Reported) Multivitamin (Daily Multiple Vitamin) 1 EACH TABLET 1 TAB PO DAILY SUPP ( Reported) Pravastatin Sodium 40 MG TABLET 1 TAB PO DAILY CHOLESTEROL (Reported) Past History Travel History Traveled to [place] past 21 day No Medical History Neurological: NONE EENT: cataracts Cardiovascular: hypertension, hyperlipidemia Respiratory: NONE Gastrointestinal: GERD Hepatic: NONE Renal: NONE Musculoskeletal: osteoarthritis Psychiatric: NONE Endocrine: NONE Blood Disorders: NONE Cancer(s): melanoma 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 Exam & Diagnostic Data Last 24 Hrs of Vital Signs/I&O Vital Signs Date Time Temp Pulse Resp B/P B/P Pulse O2 O2 Flow FiO2 Mean Ox Delivery Rate 03/18 2044 98.4 68 18 135/71 98 Last 24 Hrs of Labs/Pierre: Laboratory Tests 03/18/182104: Anion Gap 16, Estimated GFR 53 L, BUN/Creatinine Ratio 32.0 H, Glucose 124 H, Calcium 9.7, Total Bilirubin 0.5, AST 40 H, ALT 27, Alkaline Phosphatase 119, Troponin I < 0.01, Total Protein 7.5, Albumin 4.5, Globulin 3.0, Albumin/ Globulin Ratio 1.5, PT 10.7, INR 0.98, APTT 27, CBC w Diff NO MAN DIFF REQ, RBC 3.90 L, MCV 93.6, MCH 31.5 H, MCHC 33.6, RDW 13.2, MPV 9.6, Gran % 83.5 H, Lymphocytes % 9.2 L, Monocytes % 7.0, Eosinophils % 0.3, Basophils % 0, Absolute Granulocytes 10.3 H, Absolute Lymphocytes 1.1 L, Absolute Monocytes 0.9 H, Absolute Eosinophils 0, Absolute Basophils 0 Microbiology 03/18 2215 URINE ROUT: Urine Culture - ORD Diagnostic Data CXR Results FINDINGS: The heart is enlarged. There is calcific atherosclerotic disease of the aorta. No focal consolidation to indicate pneumonia. No pleural effusion or pneumothorax. Curvature of the thoracic spine, concave towards the left. Degenerative changes of the thoracic spine. No displaced rib fracture. IMPRESSION: No pneumonia. No pneumothorax or pleural effusion Other Results XR HIP, LEFT FINDINGS: There is a displaced intratrochanteric fracture of the left hip. The femoral head remains seated in acetabulum. There is joint narrowing of the left hip with subchondral sclerosis and bone spurs of the femoral head and acetabulum. Patient has a right hip replacement partially imaged. IMPRESSION: Intratrochanteric fracture of the left hip. XR HIP, RIGHT FINDINGS: Status post right hip replacement. Orthopedic hardware intact. No dislocation of the hip joint. There is a displaced fracture through the base of the greater tuberosity. This is new since exam of 02/16/2017. The fracture margin however appears sclerotic suggesting that this is an old fracture. IMPRESSION: 1. Status post right hip replacement. 2. Fracture through the greater tuberosity of the femur. This is new since exam of 02/16/2017 but sclerotic margin of the fracture fragments suggesting this is an old fracture. Clinically correlate. Core Measures/Misc (08/16) Acute Coronary Syndrome ACS Diagnosis: No Congestive Heart Failure Congestive Heart Failure Diagnosis No Cerebrovascular Accident CVA/TIA Diagnosis: No
--- NOTE | 2018-03-18 23:54 | History & Physical Pre-Op ---
General Information and HPI MD Statement: I have seen and personally examined TASH WOOTEN V and documented this H&P. THIS is an 87-year-old female who presents to the emergency room via EMS after a slip and fall in her kitchen. Patient states she was cleaning the floor and slipped and fell she denies any head injury dizziness or loss of consciousness. Patient states this was a mechanical fall and she only has left hip pain and tenderness. She is a healthy female that lives alone and has life alert. She ambulates without assistance and drives a car. History of Present Illness: THIS is an 87-year-old female who presents to the emergency room via EMS after a slip and fall in her kitchen. Patient states she was cleaning the floor and slipped and fell she denies any head injury dizziness or loss of consciousness. Patient states this was a mechanical fall and she only has left hip pain and tenderness. She is a healthy female that lives alone and has life alert. She ambulates without assistance and drives a car. Allergies/Medications Allergies: Coded Allergies: No Known Allergies (02/13/17) Home Med list Amlodipine Besylate 5 MG TABLET 1 TAB PO DAILY BP (Reported) Aspirin (Ecotrin*) 81 MG TABLET.DR 1 TAB PO DAILY HEART/BLOOD (Reported) Calcium (Elemental-Fr Calcarb) (Calcium) 600 MG CALCIUM (1,500 MG) TABLET 1 TAB PO DAILY SUPPLEMENT (Reported) Glucosam HCl/Chondro Rothman A/C/Mn (Glucosamine-Chondroitin Cap) 1 EACH CAPSULE 1 TAB PO DAILY SUPP (Reported) Losartan Potassium 100 MG TABLET 1 TAB PO DAILY BP (Reported) Multivitamin (Daily Multiple Vitamin) 1 EACH TABLET 1 TAB PO DAILY SUPP ( Reported) Pravastatin Sodium 40 MG TABLET 1 TAB PO DAILY CHOLESTEROL (Reported) Past History Medical History Blood Transfusion Hx: No Neurological: NONE EENT: cataracts Cardiovascular: hypertension, hyperlipidemia Respiratory: NONE Gastrointestinal: GERD Hepatic: NONE Renal: NONE Musculoskeletal: osteoarthritis Psychiatric: NONE Endocrine: NONE Blood Disorders: NONE Cancer(s): melanoma ECHO VASC TECH/Reproductive: NONE History of MRSA: No History of VRE: No History of CDIFF: No Influenza Vaccine: 09/02/16 Surgical History Pertinent Surgical History: cholecystectomy, cataract removal, hysterectomy Past Family/Social History Psychosocial History Services at Home None Review of Systems Review of Systems: Constitutional: No chills no fever no weakness HEENT: No blurred vision visual changes no throat pain nasal pain CV: denies chest pain edema orthopnea syncopal episode no peripheral edema Respiratory: No cough hemoptysis shortness of breath or wheeze GI: No abdominal pain bloating constipation or diarrhea or bloody stools no vomiting Musculoskeletal: No neck pain back pain, left hip pain and tenderness Skin: No recent acute changes in skin Neurological: No dizziness weakness or acute mental status changes Hematologic: no history of blood dyscrasia to include PE DVT or bleeding disorder No reported reaction to general anesthetics No recent fevers fluids or infections Exam & Diagnostic Data Last 24 Hrs of Vital Signs/I&O PE: Patient is alert and oriented 3 in no apparent distress HEENT: Within normal limits Neck: Supple nontender with active range of motion no carotid bruits no meningeal signs Chest: Clear to auscultation symmetric without rales rhonchi or wheeze Heart regular rate and rhythm without murmurs rubs or gallops peripheral vascular normal without dependent edema. Abdomen: Soft rounded without distention, bowel sounds present, nontender to palpation, no guarding or rebound Musculoskeletal: Patient is lying in bed comfortable she has moderate pain and tenderness along the left lateral hip and into the groin area. Examination of her lower extremities shows cancer soft bilaterally sensory motor is intact and she has good pulses distally. Vital Signs Date Time Temp Pulse Resp B/P B/P Pulse O2 O2 Flow FiO2 Mean Ox Delivery Rate 03/18 2302 98.5 64 18 112/70 97 Room Air Room Air 03/18 2044 98.4 68 18 135/71 98 Diagnostic Data CXR Results FINDINGS: The heart is enlarged. There is calcific atherosclerotic disease of the aorta. No focal consolidation to indicate pneumonia. No pleural effusion or pneumothorax. Curvature of the thoracic spine, concave towards the left. Degenerative changes of the thoracic spine. No displaced rib fracture. IMPRESSION: No pneumonia. No pneumothorax or pleural effusion Other Results XR HIP, LEFT FINDINGS: There is a displaced intratrochanteric fracture of the left hip. The femoral head remains seated in acetabulum. There is joint narrowing of the left hip with subchondral sclerosis and bone spurs of the femoral head and acetabulum. Patient has a right hip replacement partially imaged. IMPRESSION: Intratrochanteric fracture of the left hip. XR HIP, RIGHT FINDINGS: Status post right hip replacement. Orthopedic hardware intact. No dislocation of the hip joint. There is a displaced fracture through the base of the greater tuberosity. This is new since exam of 02/16/2017. The fracture margin however appears sclerotic suggesting that this is an old fracture. IMPRESSION: 1. Status post right hip replacement. 2. Fracture through the greater tuberosity of the femur. This is new since exam of 02/16/2017 but sclerotic margin of the fracture fragments suggesting this is an old fracture. Clinically correlate. Assessment/Plan Assessment/Plan: Assessment and plan 87-year-old female with mechanical fall sustained a left intertrochanteric fracture. She is healthy and only suffers from hypertension. She will be nothing by mouth tonight pending surgery in the morning by Dr. Newman. She will have alps for DVT prophylaxis. Morphine for pain and surgical discussion was done all risks benefits and alternatives to the procedure were discussed with patient and family and she has decided to proceed with surgery As Ranked By This Provider Problem List: 1. Closed intertrochanteric fracture of left hip 2. Status post total hip replacement, right Admission Lab Results I reviewed the following labs: Laboratory Tests 03/18 03/18 0659 210 Chemistry Sodium (137 - 145 mmol/L) 135 L Potassium (3.5 - 5.1 mmol/L) 4.1 Chloride (98 - 107 mmol/L) 99 Carbon Dioxide (22 - 30 mmol/L) 21 L Anion Gap (5 - 16) 16 BUN (7 - 17 mg/dL) 32 H Creatinine (0.5 - 1.0 mg/dL) 1.0 Estimated GFR (>60 ml/min) 53 L BUN/Creatinine Ratio (7 - 25 %) 32.0 H Glucose (65 - 99 mg/dL) 124 H Calcium (8.4 - 10.2 mg/dL) 9.7 Total Bilirubin (0.2 - 1.3 mg/dL) 0.5 AST (14 - 36 U/L) 40 H ALT (9 - 52 U/L) 27 Alkaline Phosphatase (<127 U/L) 119 Troponin I (< 0.11 ng/ml) < 0.01 Total Protein (6.3 - 8.2 g/dL) 7.5 Albumin (3.5 - 5.0 g/dL) 4.5 Globulin (1.9 - 4.2 gm/dL) 3.0 Albumin/Globulin Ratio (1.1 - 2.2 %) 1.5 Coagulation PT (9.4 - 12.5 SEC) 10.7 INR (0.90 - 1.19) 0.98 APTT (25 - 37 SEC) 27 Hematology CBC w Diff NO MAN DIFF REQ WBC (4.8 - 10.8 /CUMM) 12.4 H RBC (4.20 - 5.40 /CUMM) 3.90 L Hgb (12.0 - 16.0 G/DL) 12.3 Hct (37 - 47 %) 36.5 L MCV (81.0 - 99.0 FL) 93.6 MCH (27.0 - 31.0 PG) 31.5 H MCHC (33.0 - 37.0 G/DL) 33.6 RDW (11.5 - 14.5 %) 13.2 Plt Count (130 - 400 /CUMM) 263 MPV (7.4 - 10.4 FL) 9.6 Gran % (42.2 - 75.2 %) 83.5 H Lymphocytes % (20.5 - 51.1 %) 9.2 L Monocytes % (1.7 - 9.3 %) 7.0 Eosinophils % (0 - 5 %) 0.3 Basophils % (0.0 - 2.0 %) 0 Absolute Granulocytes (1.4 - 6.5 /CUMM) 10.3 H Absolute Lymphocytes (1.2 - 3.4 /CUMM) 1.1 L Absolute Monocytes (0.10 - 0.60 /CUMM) 0.9 H Absolute Eosinophils (0.0 - 0.7 /CUMM) 0 Absolute Basophils (0.0 - 0.2 /CUMM) 0 Urines Urine Color (YEL,AMB,STR) YEL Urine Clarity (CLEAR) CLEAR Urine pH (5.0 - 8.0) 6.0 Ur Specific [place] (1.001 - 1.035) 1.025 Urine Protein (NEG,<30 MG/DL) 100 H Urine Ketones (NEG) NEG Urine Nitrite (NEG) NEG Urine Bilirubin (NEG) NEG Urine Urobilinogen (0.1 - 1.0 EU/dl) 0.2 Ur Leukocyte Esterase (NEG) NEG Ur Microscopic SEDIMENT EXAMINED Urine RBC (0 - 5 /HPF) RARE Urine WBC (0 - 2 /HPF) RARE Ur Epithelial Cells (NONE,FEW) FEW Urine Bacteria (NEG/NONE) MOD H Hyaline Casts (0/LPF) RARE H Urine Mucus (FEW,NONE) RARE Urine Hemoglobin (NEG) TRACE-INTACT Urine Glucose (N MG/DL) NEG Admission Meds I reviewed the following Meds: Current Medications Sig/Roly Start time Last Medication Dose Stop Time Status Admin Amlodipine Besylate 5 MG DAILY 03/19 900 UNVr (Norvasc) Dextrose/Sodium 1,000 ML 100 MLS/HR 03/18 2345 UNVr Chloride (D5W-1/2 Normal Saline 1000ML) Losartan Potassium 100 MG DAILY 03/19 900 UNVr (Cozaar) Pravastatin Sodium 40 MG DAILY 03/19 900 UNVr (Pravachol) X-ray in the ER shows a left hip intertrochanteric fracture she also had an x- ray of her chest which was normal EKG was normal.
[2018-03-19 02:00] VITALS: BP 158/72
[2018-03-19 06:37] VITALS: BP 160/70
[2018-03-19 12:45] VITALS: BP 190/80
[2018-03-19 14:13] VITALS: BP 160/72
--- NOTE | 2018-03-19 20:48 | Operative Report ---
Operative/Inv Procedure Report Surgery Date: 03/19/18 Name of Procedure: Open reduction internal fixation left hip Pre-Operative Diagnosis: Left hip intertrochanteric fracture Post-Operative Diagnosis: Same Estimated Blood Loss: 250 Surgeon/Network Control Supervisor: Mukund Newman MD Anesthesia: general endotracheal tube Operative/Procedure Note Note: The patient was taken to the operating room and positively identified. After induction of general anesthesia and administration of appropriate preoperative antibiotics, she was positioned on the fracture table and all bony prominences were well-padded. Utilizing traction and rotation a satisfactory reduction was obtained. This was confirmed using biplanar fluoroscopic imaging. The hip was then prepped and draped in usual sterile fashion. An incision was made over the lateral aspect of the left hip. This was carried down through skin and subcutaneous tissue to the level of the fascia. Meticulous hemostasis was maintained with Bovie cautery. The fascia was opened sharply and the muscle dissected bluntly off the lateral cortex of the femur. Utilizing fluoroscopic imaging a threaded pin was passed through the lateral cortex of the femur up into the femoral head. Proper placement was verified using biplanar fluoroscopic imaging. The pin was then measured and overreamed to accept a 90 mm [place] standard lag screw. A 3 hole 135 [place] sideplate was selected and placed over the lag screw. The plate was fixed to the lateral cortex of the femur utilizing cortical screws. Please see the nursing record for exact screw lengths. Proper placement of the hardware and reduction of the fracture was verified using biplanar fluoroscopic imaging. The wound was then irrigated and closed in layers. A sterile dressing was applied. The patient was awakened and taken to the recovery room in satisfactory condition.
--- NOTE | 2018-03-19 21:20 | RADIOLOGY REPORT ---
EXAMINATION: XR HIP, LEFT, C-arm imaging. CLINICAL INFORMATION: Left hip fracture. COMPARISON: Left hip 03/18/2018 TECHNIQUE: C-arm imaging left hip. Fluoroscopy time: 2 minutes, 9 seconds Number of images: 20 FINDINGS: Spot views of the left hip show fracture of the left hip. Subsequent images demonstrate placement of the internal fixation of compression screw and plate. IMPRESSION: C-arm imaging of internal fixation of left hip fracture.
[2018-03-19 21:57] VITALS: BP 160/90
[2018-03-19 22:57] VITALS: BP 120/88
[2018-03-20 05:59] VITALS: BP 138/68
[2018-03-20 08:15] LABS: ABSOLUTE BASOPHIL COUNT 0 /CUMM (0.0-0.2); ABSOLUTE EOSINOPHIL COUNT 0 /CUMM (0.0-0.7); ABSOLUTE GRANULOCYTE CT 6.7 /CUMM (1.4-6.5); ABSOLUTE LYMPH COUNT 1.2 /CUMM (1.2-3.4); ABSOLUTE MONOCYTE COUNT 1.2 /CUMM (0.10-0.60); BASOPHIL % 0.3 % (0.0-2.0); EOSINOPHIL % 0.5 % (0-5); GRANULOCYTE % 72.6 % (42.2-75.2); MEAN CORPUSCULAR HGB 31.7 PG (27.0-31.0); MEAN CORPUSCULAR HGB CONC 34.2 G/DL (33.0-37.0); MEAN CORPUSCULAR VOLUME 92.7 FL (81.0-99.0); PLATELET COUNT 182 /CUMM (130-400); RBC DISTRIBUTION WIDTH 13.3 % (11.5-14.5); RED BLOOD CELL CT 3.12 /CUMM (4.20-5.40); WHITE BLOOD CELL COUNT 9.3 /CUMM (4.8-10.8)
--- NOTE | 2018-03-20 08:47 | PN- Orthopedic ---
Subjective Subjective: Patient reports pain with ambulation, denies pain laying in bed. Pain controlled with Tylneol. Reports nausea and sedation when taking Diluadid in the past. She is tolerating breakfast, however has a poor appetitie from not eating in a couple days. States she just had her oakley removed. She denies any numbness or tingling, chest pain or shortness of breath. She offers no other complaints. Objective Vital Signs and I&Os Vital Signs Date Time Temp Pulse Resp B/P B/P Pulse O2 O2 Flow FiO2 Mean Ox Delivery Rate 03/20 0813 20 94 Room Air 03/20 0559 97.4 64 20 138/68 98 Nasal 2.0L Cannula 03/20 0000 97 Nasal 2.0L Cannula 03/19 2257 98.9 109 20 120/88 99 03/19 2157 98.6 64 18 160/90 97 03/19 1413 98.1 67 20 160/72 92 Room Air 03/19 1245 64 18 190/80 92 Room Air 03/19 1121 Room Air Room Air Intake & Output 03/20 1600 03/20 0800 03/20 0000 03/19 1600 03/19 0800 03/19 0000 Intake Total 480 390 860 400 100 Output Total 450 450 Balance 30 390 410 400 100 Intake, IV 150 800 400 100 Intake, Oral 480 240 60 Output, Urine 450 450 Patient 118 lb Weight Weight Reported by Patient Measurement Method Physical Exam: Gen - resting comfortably in nad eating breakfast Cardiac - S1S2 noted Lungs - CTAB Ext - Left hip dressing c/d/i, compartment soft, moves all extremities, motor an sensory intact, alps in place, no edema or calf tenderness B/L Current Medications: Current Medications Sig/Roly Start time Last Medication Dose Route Stop Time Status Admin Acetaminophen 650 MG Q4-6 PRN PRN 03/20 0645 AC PO Acetaminophen 1,000 MG Q6H 03/19 1315 DC 03/20 N/A 1 UNIT IV 03/20 0729 0626 Amlodipine Besylate 5 MG DAILY 03/19 09 AC 03/19 PO 0813 Apixaban 2.5 MG BID 03/20 09 AC PO Cefazolin Sodium 2 GM IQ8 03/20 0000 DC 03/19 N/A 1 UNIT IV 03/20 0829 2314 Dextrose/Sodium 1,000 ML 75 MLS/HR 03/19 2345 AC Chloride IV Dextrose/Sodium 1,000 ML Q20H 03/19 1315 DC 03/19 Chloride IV 1320 Dextrose/Sodium 1,000 ML 100 MLS/HR 03/18 2345 DC 03/19 Chloride IV 0257 Fentanyl Citrate 200 MCG .STK-MED ONE 03/19 1824 DC IM 03/19 1825 Hydromorphone HCl 2 MG Q4P PRN 03/19 2030 AC PO Hydromorphone HCl 4 MG Q4P PRN 03/19 2030 AC PO Losartan Potassium 100 MG DAILY 03/19 0900 AC 03/19 PO 0813 Morphine Sulfate 2 MG Q3P PRN 03/19 2030 AC 03/19 IV 2215 Morphine Sulfate 2 MG Q4P PRN 03/19 0245 DC 03/19 IV 1741 Ondansetron HCl 4 MG .STK-MED ONE 03/19 1825 DC IM 03/19 1826 Patient Medication 1 ED ONE 03/19 1715 DC 03/19 Teaching ED 03/19 1716 1742 Pravastatin Sodium 40 MG 1700 03/19 1700 AC 03/19 PO 1741 Results Last 48 Hours of Labs: Laboratory Tests 03/20 03/18 0620 2248 Chemistry Sodium Pending Potassium Pending Chloride Pending Carbon Dioxide Pending Anion Gap Pending BUN Pending Creatinine Pending BUN/Creatinine Ratio Pending Hematology CBC w Diff Pending WBC Pending RBC Pending Hgb Pending Hct Pending MCV Pending MCH Pending MCHC Pending RDW Pending Plt Count Pending MPV Pending Urines Urine Color (YEL,AMB,STR) YEL Urine Clarity (CLEAR) CLEAR Urine pH (5.0 - 8.0) 6.0 Ur Specific [place] (1.001 - 1.035) 1.025 Urine Protein (NEG,<30 MG/DL) 100 H Urine Ketones (NEG) NEG Urine Nitrite (NEG) NEG Urine Bilirubin (NEG) NEG Urine Urobilinogen (0.1 - 1.0 EU/dl) 0.2 Ur Leukocyte Esterase (NEG) NEG Ur Microscopic SEDIMENT EXAMINED Urine RBC (0 - 5 /HPF) RARE Urine WBC (0 - 2 /HPF) RARE Ur Epithelial Cells (NONE,FEW) FEW Urine Bacteria (NEG/NONE) MOD H Hyaline Casts (0/LPF) RARE H Urine Mucus (FEW,NONE) RARE Urine Hemoglobin (NEG) TRACE-INTACT Urine Glucose (N MG/DL) NEG 03/18 2105 Chemistry Sodium (137 - 145 mmol/L) 135 L Potassium (3.5 - 5.1 mmol/L) 4.1 Chloride (98 - 107 mmol/L) 99 Carbon Dioxide (22 - 30 mmol/L) 21 L Anion Gap (5 - 16) 16 BUN (7 - 17 mg/dL) 32 H Creatinine (0.5 - 1.0 mg/dL) 1.0 Estimated GFR (>60 ml/min) 53 L BUN/Creatinine Ratio (7 - 25 %) 32.0 H Glucose (65 - 99 mg/dL) 124 H Calcium (8.4 - 10.2 mg/dL) 9.7 Total Bilirubin (0.2 - 1.3 mg/dL) 0.5 AST (14 - 36 U/L) 40 H ALT (9 - 52 U/L) 27 Alkaline Phosphatase (<127 U/L) 119 Troponin I (< 0.11 ng/ml) < 0.01 Total Protein (6.3 - 8.2 g/dL) 7.5 Albumin (3.5 - 5.0 g/dL) 4.5 Globulin (1.9 - 4.2 gm/dL) 3.0 Albumin/Globulin Ratio (1.1 - 2.2 %) 1.5 Coagulation PT (9.4 - 12.5 SEC) 10.7 INR (0.90 - 1.19) 0.98 APTT (25 - 37 SEC) 27 Hematology CBC w Diff NO MAN DIFF REQ WBC (4.8 - 10.8 /CUMM) 12.4 H RBC (4.20 - 5.40 /CUMM) 3.90 L Hgb (12.0 - 16.0 G/DL) 12.3 Hct (37 - 47 %) 36.5 L MCV (81.0 - 99.0 FL) 93.6 MCH (27.0 - 31.0 PG) 31.5 H MCHC (33.0 - 37.0 G/DL) 33.6 RDW (11.5 - 14.5 %) 13.2 Plt Count (130 - 400 /CUMM) 263 MPV (7.4 - 10.4 FL) 9.6 Gran % (42.2 - 75.2 %) 83.5 H Lymphocytes % (20.5 - 51.1 %) 9.2 L Monocytes % (1.7 - 9.3 %) 7.0 Eosinophils % (0 - 5 %) 0.3 Basophils % (0.0 - 2.0 %) 0 Absolute Granulocytes (1.4 - 6.5 /CUMM) 10.3 H Absolute Lymphocytes (1.2 - 3.4 /CUMM) 1.1 L Absolute Monocytes (0.10 - 0.60 /CUMM) 0.9 H Absolute Eosinophils (0.0 - 0.7 /CUMM) 0 Absolute Basophils (0.0 - 0.2 /CUMM) 0 Assessment/Plan Assessment/Plan 87 F POD 1 s/p L hip ORIF secondary to left hip IT fx PT eval, WBAT Regular diet D/c IVF pending labs Pain regimen - oxycodone, tylenol, morphine DVT ppx - eliquis bid Bowel regimen on board Home meds ordered Due to void Encourage IS F/u labs Dispo pending PT Will d/w Dr. Newman Core Measures Venous Thromboembolism VTE Risk Factors Surgery No Mechanical VTE Prophylaxis d/t N/A MechProphylax Ordered No VTE Pharm Prophylaxis d/t NA PharmProphylax ordered
[2018-03-20 09:34] LABS: HEMATOCRIT 28.9 % (37-47)
[2018-03-20 15:15] VITALS: BP 160/65
[2018-03-20] MEDS ORDERED: COLACE100 M1 PO (16:19)
[2018-03-20] MEDS ORDERED: MIRALAX17 G1 PO (16:19)
[2018-03-20] MEDS ORDERED: ELIQUIS2.5 M1 PO (16:19)
[2018-03-20] MEDS ORDERED: ROXICODONE5 M1 PO (16:19)
[2018-03-20] MEDS ORDERED: PROTONIX20 M1 PO (16:19)
--- NOTE | 2018-03-20 16:24 | Patient Discharge Instructions ---
Discharge Instructions General Discharge Information You were seen/treated for: Left hip fracture Watch for these problems: Increasing pain despite the use of pain medication Increasing redness, warmth or swelling Drainage of any type from incision Inability to bear weight on operative leg Persistent nausea and vomiting Fever greater than 101.5 degrees Do not soak the wound: Yes No bath, but you may shower: Yes Other wound care: Please keep wound clean and dry. No ointments or lotions of any type on or near incision at any time. No exceptions. Daily dry dressing changes are recommended each day thereafter. Do not soak your wound in a bath at any time until otherwise indicated by your surgeon. You may shower, please dry wound immediately after shower with a clean towel. Diet Continue normal diet: Yes Recommended Diet: Regular Activity Full Activity/No Limits: No Activity Self Limited: Yes Activity Limited to: Weight bear as tolerated Additional ACTIVITY Info: Use rolling walker as needed Acute Coronary Syndrome Inclusion Criteria At DC or during hospital stay patient has or had the following: ACS DIAGNOSIS No Discharge Core Measures Meds if any: Prescribed or Continued at Discharge Meds if any: NOT Prescribed or Continued at Discharge Congestive Heart Failure Inclusion Criteria At DC or during hospital stay patient has or had the following: CHF DIAGNOSIS No Discharge Core Measures Meds if any: Prescribed or Continued at Discharge Meds if any: NOT Prescribed or Continued at Discharge Cerebrovascular accident Inclusion Criteria At DC or during hospital stay patient has or had the following: CVA/TIA Diagnosis No Discharge Core Measures Meds if any: Prescribed or Continued at Discharge Meds if any: NOT Prescribed or Continued at Discharge Venous thromboembolism Inclusion Criteria VTE Diagnosis No VTE Type NONE VTE Confirmed by (Test) NONE Discharge Core Measures - Per Current guidelines, there needs to be overlap - treatment for the first 5 days of Warfarin therapy. - If discharged on Warfarin prior to 5 days of - overlap therapy, the patient will need to be - assessed for post discharge needs including - *Post discharge parental anticoagulation - *Warfarin and/or parental anticoagulation education - *Follow up date to check INR post discharge At least 5 days overlap therapy as Inpatient No Meds if any: Prescribed or Continued at Discharge Note: Overlap Therapy is Warfarin and Anticoagulant Meds if any: NOT Prescribed or Continued at Discharge
--- NOTE | 2018-03-20 16:32 | Surgical Discharge Summary ---
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 Patient/Self Services at Home: None What is Your Primary Language? [place]ian Review of Systems: Refer to H&P Hospital Course Course Attending Physician: Mukund Newman MD Primary Care Physician: Amadeo MEREDITH,[facility] Course: This is an 87-year-old female who presented with a left intertrochanteric fracture status post mechanical fall. She was admitted to the orthopedic service under the care of Dr. Newman and proceeded to the OR for a left hip ORIF on . The procedure was tolerated well and patient was transferred to a general surgical floor. Her diet was advanced and tolerated and the patient voided spontaneously. The patient was evaluated and treated by physical therapy. At the time of hospital discharge, vital signs were stable, neurovascular status was intact and pain was controlled with the use of oral pain medications. Complications: mild hyponatremia Allergies: Coded Allergies: No Known Allergies (02/13/17) Disposition Summary Disposition Principal Diagnosis: Left hip intertrochanteric fracture Additional Diagnosis: Same, s/p open reduction internal fixation left hip Discharge Disposition: SNF Discharge Instructions General Discharge Information Code Status: Full Code Patient's Diet: Regular Patient's Activity: WBAT, RW as needed Follow-Up Instructions/Appts: Follow up in [address] Newman or sooner with concerns. Medications at Discharge Discharge Medications: Stop taking the following medications: Aspirin (Ecotrin*) 81 MG TABLET. ORAL DAILY Continue taking these medications: Pravastatin Sodium (Pravastatin Sodium) 40 MG TABLET 1 Tablet ORAL DAILY Comments: Last Taken: 02/17/17 Time: 2200PM Losartan Potassium (Losartan Potassium) 100 MG TABLET 1 Tablet ORAL DAILY Comments: Last Taken: 02/18/17 Time: 0800AM Glucosam HCl/Chondro [place] A/C/Mn (Glucosamine-Chondroitin Cap) 1 EACH CAPSULE 1 Tablet ORAL DAILY Comments: NOT GIVEN Multivitamin (Daily Multiple Vitamin) 1 EACH TABLET 1 Tablet ORAL DAILY Comments: NOT GIVEN Amlodipine Besylate (Amlodipine Besylate) 5 MG TABLET 1 Tablet ORAL DAILY Qty = 30 Calcium (Elemental-Fr Calcarb) (Calcium) 600 MG CALCIUM (1,500 MG) TABLET 1 Tablet ORAL DAILY Start taking the following new medications: Oxycodone HCl (Roxicodone) 5 MG TABLET 1-2 Tablet ORAL EVERY 4-6 HOURS NEEDED as needed for PAIN Qty = 36 No Refills Docusate Sodium (Colace) 100 MG CAPSULE 1 Capsule ORAL TWICE DAILY Qty = 14 No Refills Apixaban (Eliquis) 2.5 MG TABLET 1 Tablet ORAL TWICE DAILY Qty = 60 No Refills Polyethylene Glycol 3350 (Miralax) 17 GRAM POWD.PACK 1 Packet ORAL DAILY Qty = 7 No Refills Instructions: dissolve in water Pantoprazole Sodium (Protonix) 20 MG TABLET.DR 1 Tablet ORAL DAILY Qty = 30 No Refills
[2018-03-20 22:27] VITALS: BP 132/60
[2018-03-21 06:05] VITALS: BP 164/62
--- NOTE | 2018-03-21 06:37 | PN- Orthopedic ---
Subjective Subjective: Patient seen and evaluated. No acute events overnight. Continues to report mild- moderate pain in left hip that is worse with ambulation. Though she says this is better than yesterday. Pt endorses poor appetitie and became nauseous yesterday when attempting to eat dinner. She has been out of bed and has ambulated with assistance. voiding without difficulty. Denies cp, sob, palpitations, numbness/ tingling. No other complaints. Objective Vital Signs and I&Os Vital Signs Date Time Temp Pulse Resp B/P B/P Pulse O2 O2 Flow FiO2 Mean Ox Delivery Rate 03/21 0605 98.3 96 20 164/62 92 03/20 2227 98.0 80 18 132/60 92 Room Air 03/20 1515 97.7 75 18 160/65 96 Room Air 03/20 0907 68 122/80 03/20 0813 20 94 Room Air Intake & Output 03/21 0800 03/21 0000 03/20 1600 03/20 0800 03/20 0000 03/19 1600 Intake Total 100 760 950 480 390 860 Output Total 400 350 900 450 450 Balance -300 410 50 30 390 410 Intake, IV 10 150 150 800 Intake, Oral 100 750 800 480 240 60 Number 0 0 Bowel Movements Output, Urine 400 350 900 450 450 Physical Exam: Gen - elderly female, sleeping upon arrival, answering questions, NAD Cardiac - rrr, S1S2 noted Lungs - CTAB Ext - Left hip dressing c/d/i, compartment soft, moves all extremities, motor an sensory intact, alps in place, no edema or calf tenderness B/L, feet are warm and well perfused Current Medications: Current Medications Sig/Roly Start time Last Medication Dose Route Stop Time Status Admin Acetaminophen 650 MG Q4-6 PRN PRN 03/20 0645 AC PO Acetaminophen 1,000 MG Q6H 03/19 1315 DC 03/20 N/A 1 UNIT IV 03/20 07 0626 Amlodipine Besylate 5 MG DAILY 03/19 900 AC 03/20 PO 906 Apixaban 2.5 MG BID 03/20 900 AC 03/20 PO 2012 Cefazolin Sodium 2 GM IQ8 03/20 0000 DC 03/20 N/A 1 UNIT IV 03/20 0829 09 Dextrose/Sodium 1,000 ML 75 MLS/HR 03/19 2345 DC Chloride IV Hydromorphone HCl 2 MG Q4P PRN 03/19 2030 DC PO Hydromorphone HCl 4 MG Q4P PRN 03/19 2030 DC PO Losartan Potassium 100 MG DAILY 03/19 0900 AC 03/20 PO 0907 Morphine Sulfate 2 MG Q3P PRN 03/19 2030 AC 03/19 IV 2215 Oxycodone HCl 5 MG Q4-6 PRN PRN 03/20 0845 AC 03/21 PO 0604 Oxycodone HCl 10 MG Q4-6 PRN PRN 03/20 0845 AC 03/20 PO 1841 Pravastatin Sodium 40 MG 1700 03/19 1700 AC 03/20 PO 1705 Sodium Chloride 1,000 MG BID 03/20 0948 AC 03/20 PO 2012 Results Last 48 Hours of Labs: Laboratory Tests 03/20 620 Chemistry Sodium (137 - 145 mmol/L) 131 L Potassium (3.5 - 5.1 mmol/L) 4.1 Chloride (98 - 107 mmol/L) 96 L Carbon Dioxide (22 - 30 mmol/L) 26 Anion Gap (5 - 16) 9 BUN (7 - 17 mg/dL) 21 H Creatinine (0.5 - 1.0 mg/dL) 0.9 Estimated GFR (>60 ml/min) 59 L BUN/Creatinine Ratio (7 - 25 %) 23.3 Hematology CBC w Diff NO MAN DIFF REQ WBC (4.8 - 10.8 /CUMM) 9.3 RBC (4.20 - 5.40 /CUMM) 3.12 L Hgb (12.0 - 16.0 G/DL) 9.9 L Hct (37 - 47 %) 28.9 L MCV (81.0 - 99.0 FL) 92.7 MCH (27.0 - 31.0 PG) 31.7 H MCHC (33.0 - 37.0 G/DL) 34.2 RDW (11.5 - 14.5 %) 13.3 Plt Count (130 - 400 /CUMM) 182 MPV (7.4 - 10.4 FL) 10.0 Gran % (42.2 - 75.2 %) 72.6 Lymphocytes % (20.5 - 51.1 %) 13.5 L Monocytes % (1.7 - 9.3 %) 13.1 H Eosinophils % (0 - 5 %) 0.5 Basophils % (0.0 - 2.0 %) 0.3 Absolute Granulocytes (1.4 - 6.5 /CUMM) 6.7 H Absolute Lymphocytes (1.2 - 3.4 /CUMM) 1.2 Absolute Monocytes (0.10 - 0.60 /CUMM) 1.2 H Absolute Eosinophils (0.0 - 0.7 /CUMM) 0 Absolute Basophils (0.0 - 0.2 /CUMM) 0 Assessment/Plan Assessment/Plan 87 F POD 2 s/p L hip ORIF secondary to left hip IT fx PT eval, WBAT Regular diet Pain regimen - oxycodone, tylenol, morphine DVT ppx - eliquis bid Bowel regimen on board Home meds ordered Encourage IS F/u labs Dispo pending PT - likely rehab tomorrow? Will d/w Dr. Newman Core Measures Venous Thromboembolism VTE Risk Factors Surgery No Mechanical VTE Prophylaxis d/t N/A MechProphylax Ordered No VTE Pharm Prophylaxis d/t NA PharmProphylax ordered No VTE Pharm Prophylaxis d/t NA PharmProphylax ordered
[2018-03-21 08:29] LABS: ABSOLUTE BASOPHIL COUNT 0 /CUMM (0.0-0.2); ABSOLUTE EOSINOPHIL COUNT 0 /CUMM (0.0-0.7); ABSOLUTE GRANULOCYTE CT 7.8 /CUMM (1.4-6.5); ABSOLUTE LYMPH COUNT 1.4 /CUMM (1.2-3.4); ABSOLUTE MONOCYTE COUNT 1.7 /CUMM (0.10-0.60); BASOPHIL % 0.2 % (0.0-2.0); EOSINOPHIL % 0.3 % (0-5); GRANULOCYTE % 71.3 % (42.2-75.2); HEMATOCRIT 28.5 % (37-47); MEAN CORPUSCULAR HGB 32.3 PG (27.0-31.0); MEAN CORPUSCULAR HGB CONC 35.1 G/DL (33.0-37.0); MEAN CORPUSCULAR VOLUME 91.9 FL (81.0-99.0); MEAN PLATELET VOLUME 10.4 FL (7.4-10.4); PLATELET COUNT 189 /CUMM (130-400); RBC DISTRIBUTION WIDTH 12.8 % (11.5-14.5); RED BLOOD CELL CT 3.11 /CUMM (4.20-5.40)
[2018-03-21 15:36] VITALS: BP 118/62
[2018-03-21 21:25] VITALS: BP 140/64
[2018-03-22 06:26] VITALS: BP 148/62
--- NOTE | 2018-03-22 07:28 | PN- Orthopedic ---
Subjective Subjective: feeling better, had bm, helped her nausea and appetite. She denies any fever or flulike illness. She has left lateral hip pain which is controlled with pain medication. She is anticipating discharge to rehabilitation today Objective Vital Signs and I&Os Vital Signs Date Time Temp Pulse Resp B/P B/P Pulse O2 O2 Flow FiO2 Mean Ox Delivery Rate 03/22 06 97.4 81 18 148/62 92 03/21 2125 98.1 78 19 140/64 94 Room Air 03/21 1536 98.2 99 20 118/62 94 Room Air 03/21 0956 68 132/80 Intake & Output 03/22 0800 03/22 0000 03/21 1600 03/21 0800 03/21 0000 03/20 1600 Intake Total 120 800 810 100 760 950 Output Total 500 450 650 400 350 900 Balance -380 350 160 -300 410 50 Intake, IV 10 10 150 Intake, Oral 120 800 800 100 750 800 Number 1 1 0 0 0 Bowel Movements Output, Urine 500 450 650 400 350 900 Physical Exam: Well-developed well-nourished no apparent distress. HEENT: Atraumatic, extraocular motion intact Neck: Supple, no lymphadenopathy Respiratory: No respiratory distress Extremities: No edema left lower extremity hip dressing in place, Dressing clean dry and intact with minimal bloody staining Incision without erythema Mild thigh swelling No signs of infection. No shortening or rotation Hip range of motion is limited and without unexpected pain Neurovascularly intact distally Bilateral calves are supple, nontender. Neuro: Alert and oriented x3 Psych: Mood affect normal, normal memory normal judgment. Skin: Warm and dry, no rash on exposed skin Results Last 48 Hours of Labs: Laboratory Tests 03/21 06 Chemistry Sodium (137 - 145 mmol/L) 131 L Hematology CBC w Diff NO MAN DIFF REQ WBC (4.8 - 10.8 /CUMM) 11.0 H RBC (4.20 - 5.40 /CUMM) 3.11 L Hgb (12.0 - 16.0 G/DL) 10.0 L Hct (37 - 47 %) 28.5 L MCV (81.0 - 99.0 FL) 91.9 MCH (27.0 - 31.0 PG) 32.3 H MCHC (33.0 - 37.0 G/DL) 35.1 RDW (11.5 - 14.5 %) 12.8 Plt Count (130 - 400 /CUMM) 189 MPV (7.4 - 10.4 FL) 10.4 Gran % (42.2 - 75.2 %) 71.3 Lymphocytes % (20.5 - 51.1 %) 12.3 L Monocytes % (1.7 - 9.3 %) 15.9 H Eosinophils % (0 - 5 %) 0.3 Basophils % (0.0 - 2.0 %) 0.2 Absolute Granulocytes (1.4 - 6.5 /CUMM) 7.8 H Absolute Lymphocytes (1.2 - 3.4 /CUMM) 1.4 Absolute Monocytes (0.10 - 0.60 /CUMM) 1.7 H Absolute Eosinophils (0.0 - 0.7 /CUMM) 0 Absolute Basophils (0.0 - 0.2 /CUMM) 0 Assessment/Plan Assessment/Plan 87 F POD 3 s/p L hip ORIF secondary to left hip IT fx PT eval, WBAT Regular diet Pain regimen - oxycodone, tylenol, morphine DVT ppx - eliquis bid, aspirin on hold Home meds Dressing changed, dsd applied. Encourage IS Hyponatremia: F/u Na this am. Dispo pending, likely rehab today Core Measures Venous Thromboembolism VTE Risk Factors Surgery No Mechanical VTE Prophylaxis d/t N/A MechProphylax Ordered No VTE Pharm Prophylaxis d/t NA PharmProphylax ordered
[2018-03-22 08:50] LABS: ABSOLUTE BASOPHIL COUNT 0 /CUMM (0.0-0.2); ABSOLUTE EOSINOPHIL COUNT 0 /CUMM (0.0-0.7); ABSOLUTE LYMPH COUNT 1.6 /CUMM (1.2-3.4); ABSOLUTE MONOCYTE COUNT 1.4 /CUMM (0.10-0.60); BASOPHIL % 0.3 % (0.0-2.0); EOSINOPHIL % 0.2 % (0-5); GRANULOCYTE % 77.1 % (42.2-75.2); HEMATOCRIT 29.1 % (37-47); MEAN CORPUSCULAR HGB 31.5 PG (27.0-31.0); MEAN CORPUSCULAR VOLUME 92.7 FL (81.0-99.0); MEAN PLATELET VOLUME 10.3 FL (7.4-10.4); PLATELET COUNT 224 /CUMM (130-400); RBC DISTRIBUTION WIDTH 13.1 % (11.5-14.5); RED BLOOD CELL CT 3.14 /CUMM (4.20-5.40)
[2018-03-22 14:50] VITALS: BP 140/70
[2018-03-22 17:21] VITALS: BP 140/70
== END 2018-03-22 18:40 | DRG 482 ==
LOC: ERH 20:33 → ENRESERV 03-19 00:44 → 2NB 03-19 01:26 → ERHI 03-19 01:26 → 2NB 03-19 01:48 → ENTRNSPT 03-19 21:32 → EDTRNSPTSTS 03-19 21:33 → EDTRNSPT 03-19 21:33 → 2NB 03-19 21:38 → CMPTRNSPT 03-19 21:57 → 2NB 03-22 18:40
PROVIDERS: Nurse Practitioner; Physician Assistant Medical; Physician Assistant Surgical
PROC: 0QS704Z Reposition Left Upper Femur with Internal Fixation Device, Open Approach (ICD-10-PCS; principal; 2018-03-19)
DX: S72.142A Displaced intertrochanteric fracture of left femur, initial encounter for closed fracture (principal); E78.5 Hyperlipidemia, unspecified; I10 Essential (primary) hypertension; K21.9 Gastro-esophageal reflux disease without esophagitis; W01.0XXA Fall on same level from slipping, tripping and stumbling without subsequent striking against object, initial encounter; Y92.000 Kitchen of unspecified non-institutional (private) residence as the place of occurrence of the external cause; Z85.820 Personal history of malignant melanoma of skin; Z90.49 Acquired absence of other specified parts of digestive tract; Z90.710 Acquired absence of both cervix and uterus; Z96.641 Presence of right artificial hip joint
CPT/HCPCS: 2NBSP; 36415; 36592; 71045; 73502-LT; 73502-RT; 81001; 82436; 87086; 93005; 93010; 96374; 96375; 96376; 97110-GO; 97116-GO; 97161-GP; 97530-GO; J0131; J0690; J2405; J3490; J7042